=== PATIENT | male | born 1985 ===

== ENCOUNTER 2019-02-18 18:10 | Emergency (ER) | payer OTHER ==
--- NOTE | 2019-02-18 19:47 | C.PDOC ---
History Of Present Illness Patient is a 33 year old male who presents to the ED c/o right ankle pain and swelling for the past week. Patient states that he had surgery to right ankle one year ago in [facility] due to fracture. He states metal hardware was placed and had been doing well up until most recently. 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 Patient rates the pain 4/10 and takes Advil and Tylenol as needed. He denies direct trauma/injury, weakness, numbness, or tingling. Chief Complaint (Nursing): Lower Extremity Problem/Injury History Per: Patient History/Exam Limitations: no limitations Onset/Duration Of Symptoms: Days (one week) Current Symptoms Are (Timing): Still Present Pain Scale Rating Of: 4 Recent travel outside of the [place]: No Additional History Per: Patient Past Medical History Reviewed: Historical Data, Nursing Documentation, Vital Signs Vital Signs: Last Vital Signs Temp 98.2 F 02/18/19 18:25 Pulse Resp 77 H 02/18/19 18:25 BP 107/66 02/18/19 18:25 Pulse Ox 20 L 02/18/19 18:25 Primary Care Provider: FAMILY PROVIDER,NO - Medical History PMH: No Chronic Diseases Surgical History: No Surg Hx Family History: States: No Known Family Hx - Social History Hx Alcohol Use: No Hx Substance Use: No - Immunization History Hx Tetanus Toxoid Vaccination: No Hx Influenza Vaccination: No Hx Pneumococcal Vaccination: No Review Of Systems Musculoskeletal: Positive for: Foot Pain (right ankle pain and swelling) Neurological: Negative for: Weakness, Numbness, Other (tingling ) Physical Exam - Physical Exam Appears: Non-toxic, No Acute Distress Skin: Normal Color, Warm, Dry Head: Atraumatic, Normacephalic Neck: Normal ROM, Supple Chest: Symmetrical Cardiovascular: Rhythm Regular Respiratory: Normal Breath Sounds, No Accessory Muscle Use, No Wheezing Extremity: Normal ROM (limited ROM due to pain), Tenderness (tender to palpation of right ankle. No ecchymosis or erythema. ), No Calf Tenderness, Capillary Refill (less than 2 seconds), Swelling (slight edema of right ankle), Other (surgical linear scar noted laterally approximately 6inches to right ankle) Extremity: Left: Painful To Bear Weight Pulses: Left Dorsalis Pedis: Normal, Right Dorsalis Pedis: Normal Neurological/Psych: Oriented x3, Normal Speech, Normal Cognition, Normal Sensation ED Course And Treatment O2 Sat by Pulse Oximetry: 99 - Other Rad right ankle xray X-Ray: Viewed By Me, Read By Radiologist Interpretation: Accession No. : [id number]. Patient Name / ID : WILTON COFFEY / [id number]. Exam Date : 02/18/2019 19:27:07 ( Approved ). Study Comment : Sex / Age : M / 33Y. Creator : Elena Oquendo MD. Dictator : Elena Oquendo MD. Shower Attendant : Tugboat Mate : Elena Oquendo MD. Approver2 : Report Date : 02/19/2019 10:37:59. My Comment : . PROCEDURE: Right ankle radiographs. 3 views. Right tibia fibula radiographs, 3 views. HISTORY: ankle pain. COMPARISON: None available. FINDINGS: BONES: Metallic plate and screw fixation of the distal fibula. No acute displaced fracture. JOINTS: No dislocation. SOFT TISSUES: Unremarkable. No evidence of radiopaque foreign body. OTHER FINDINGS: None. IMPRESSION: No acute displaced fracture, dislocation, or significant joint effusion identified. If symptoms persist or if there is clinical concern, x-ray follow-up in 7-10 days should be considered. right tib/fib xray X-Ray: Viewed By Me, Read By Radiologist Interpretation: Accession No. : [id number]. Patient Name / ID : WILTON COFFEY / [id number]. Exam Date : 02/18/2019 19:27:24 ( Approved ). Study Comment : Sex / Age : M / 33Y. Creator : Gustabo Cruz MD. Dictator : Gustabo Cruz MD. Shower Attendant : Tugboat Mate : Gustabo Cruz MD. Approver2 : Report Date : 02/19/2019 10:28:06. My Comment : . Date of service: 02/18/2019. PROCEDURE: Radiographs of the right tibia and fibula. HISTORY: pain. COMPARISON: None available. TECHNIQUE: Frontal and lateral views obtained. 2 views obtained. FINDINGS: BONES: No acute fracture. Status post ORIF distal fibular fracture. Anatomic alignment achieved. Plate and screw fixation device traverses the distal fibular diaphysis. JOINT SPACES: Unremarkable. OTHER FINDINGS: None. IMPRESSION: No acute fracture. Medical Decision Making Medical Decision Making: Plan: Toradol 60mg IM Xray Rt Ankle and Xray TIb Fib ordered Patient seen by of Podiatry. Reviewed Xray's and has advised patient is follow up with podiatry clinic at [facility] or [place] for further management. Patient advised to continue Naproxen for pain Patient verbalizes understanding and is in agreement with plan. Patient is stable for discharge. Disposition Counseled Patient/Family Regarding: Studies Performed, Diagnosis, Need For Followup, Rx Given - Disposition Referrals: Podiatry Clinic [Outside] Orthopedic Clinic at [place] [Outside] Disposition: HOME/ ROUTINE Disposition Time: 20:45 Condition: IMPROVED Additional Instructions: Continue Meds as instructed Rest, Ice, Compression, and Elevation Follow up in Podiatry Clinic in [place] or [facility] for management of hardware misalignment of right ankle noted on XRAY Return to ER if symptoms worsen Contine con los medicamentos segn las instrucciones Reposo, hielo, compresin y elevacin Seguimiento en Podiatry Clinic en [place] o [facility] para el manejo de la desalineacin del hardware del tobillo derecho anotado en XRAY Regrese a urgencias si los sntomas empeoran Prescriptions: Naproxen [Naprosyn] 500 mg PO BID #30 tablet Instructions: Hardware Removal Forms: [employer] (Yemeni), Work Excuse Print Language: KISWAHILI - Clinical Impression Clinical Impression: Right ankle pain, Pain from implanted hardware - PA / VETERINARY V[employer]UM INSPECTOR / Resident Statement MD/DO has reviewed & agrees with the documentation as recorded. - Scribe Statement The provider has reviewed the documentation as recorded by the Maulik Phillips All medical record entries made by the Maulik were at my direction and personally dictated by me. I have reviewed the chart and agree that the record accurately reflects my personal performance of the history, physical exam, medical decision making, and the department course for this patient. I have also personally directed, reviewed, and agree with the discharge instructions and disposition.
[2019-02-18 19:55] VITALS: BP 125/77; PULSE 66; RESP 18; TEMP 98.6
--- NOTE | 2019-02-18 20:15 | C.PDOC ---
Chief Complaint (Nursing): Lower Extremity Problem/Injury Past Medical History Vital Signs: Last Vital Signs Temp 98.2 F 02/18/19 18:25 Pulse Resp 77 H 02/18/19 18:25 BP 107/66 02/18/19 18:25 Pulse Ox 20 L 02/18/19 18:25 Primary Care Provider: FAMILY PROVIDER,NO - Social History Hx Alcohol Use: No Hx Substance Use: No - Immunization History Hx Tetanus Toxoid Vaccination: No Hx Influenza Vaccination: No Hx Pneumococcal Vaccination: No ED Course And Treatment O2 Sat by Pulse Oximetry: 99 Disposition - Disposition
[2019-02-18 20:19] VITALS: O2SAT 99
--- NOTE | 2019-02-18 22:12 | CP.PCM.CON ---
History of Present Illness - History of Present Illness History of Present Illness: podiatry consult note for Dr Navarro, Patient is a 33 year old male who presents to the ED c/o right ankle pain and swelling for the past week. Patient states that he had surgery to right ankle one year ago in [facility] due to fracture. He states metal hardware was placed and had been doing well. 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 Patient rates the pain 4/10 and takes Advil and Tylenol as needed. He denies trauma, weakness, numbness, tingling,fever chills. Pmhx: denies Pshx: right ankle surgery Allergies: NKFDA Past Patient History - Infectious Disease Hx of Infectious Diseases: None - Past Social History Smoking Status: Never Smoked - PSYCHIATRIC Hx Substance Use: No - SURGICAL HISTORY Hx Surgeries: Yes Other/Comment: right ankle surgery due to fx on 2018 - ANESTHESIA Hx Anesthesia: Yes Hx Anesthesia Reactions: No Hx Malignant Hyperthermia: No Meds Home Medications: Home Medication List Medication Instructions Recorded Confirmed Type Naproxen [Naprosyn] 500 mg PO BID #30 tablet 02/18/19 Rx Allergies/Adverse Reactions: Allergies Allergy/AdvReac Type Severity Reaction Status Date / Time No Known Allergies Allergy Verified 02/18/19 18:25 Physical Exam - Constitutional Appears: Well, Non-toxic, No Acute Distress - Head Exam Head Exam: ATRAUMATIC, NORMOCEPHALIC - Eye Exam Eye Exam: Normal appearance - ENT Exam ENT Exam: Mucous Membranes Moist - Cardiovascular Exam Cardiovascular Exam: REGULAR RHYTHM, +S1, +S2 - Extremities Exam Additional comments: Right lower extremity exam: Vascular: DP/PT 2/4, CFT <3 secs x 5, tg warm to warm, no ecchymosis, minimal edema on lateral distal leg, no erythema derm: hyperpigmentation noted over the previous surgical scar on the lateral aspect of the distal leg, no open lesions, no clinical signs of infection. ortho: pain on palpation to the lateral aspect of the distal leg, no pain with ROM of the ankle neuro: protective sensation grossly intact via ipswich 01/07 - Neurological Exam Neurological exam: Alert, Oriented x3 - Psychiatric Exam Psychiatric exam: Normal Affect Results - Vital Signs Recent Vital Signs: Last Vital Signs Temp 98.6 F 02/18/19 19:54 Pulse 66 02/18/19 19:54 Resp 18 02/18/19 19:54 BP 125/77 02/18/19 19:54 Pulse Ox 99 02/18/19 21:54 Assessment & Plan - Assessment and Plan (Free Text) Assessment: 33 yo male with no pmhx seen and evaluated for pain and edema over the previous surgical site on on the right distal leg. Plan: Chart, labs and x-rays reviewed case discussed with Dr. Navarro x-rays: backing out of syndesmotic screw noted. patient educated on possible surgical intervention to remove the screw Patient to follow up in clinic on Friday. Patient showed verbal understanding pain medications prn
--- NOTE | 2019-02-19 10:31 | RAD ---
Date of service: 02/18/2019 PROCEDURE: Radiographs of the right tibia and fibula. HISTORY: pain COMPARISON: None available TECHNIQUE: Frontal and lateral views obtained. 2 views obtained. FINDINGS: BONES: No acute fracture. Status post ORIF distal fibular fracture. Anatomic alignment achieved. Plate and screw fixation device traverses the distal fibular diaphysis. JOINT SPACES: Unremarkable. OTHER FINDINGS: None. IMPRESSION: No acute fracture.
--- NOTE | 2019-02-19 10:41 | RAD ---
PROCEDURE: Right ankle radiographs. 3 views. Right tibia fibula radiographs, 3 views HISTORY: ankle pain COMPARISON: None available FINDINGS: BONES: Metallic plate and screw fixation of the distal fibula. No acute displaced fracture. JOINTS: No dislocation. SOFT TISSUES: Unremarkable. No evidence of radiopaque foreign body. OTHER FINDINGS: None. IMPRESSION: No acute displaced fracture, dislocation, or significant joint effusion identified. If symptoms persist or if there is clinical concern, x-ray follow-up in 7-10 days should be considered.
== END 2019-02-18 21:13 | disposition home or self-care (01) ==
LOC: C.ER 18:10
DX: M25.571 Pain in right ankle and joints of right foot (principal); R60.0 Localized edema
CPT/HCPCS: 73590; 73610; 96372; 99284; J1885